=== PATIENT | female | born 1970 ===

== ENCOUNTER 2016-07-13 08:57 | Day surgery (SDC) | payer OTHER ==
[2016-07-13] MEDS ORDERED: Lactated Ringer's 500 ML IV ONE (10:05)
[2016-07-13] MEDS ORDERED: Propofol 10 mg/ml Inj (20 ML) ONE (10:12)
[2016-07-13 10:56] VITALS: TEMP 97; O2SAT 99
[2016-07-13 10:58] VITALS: BP 143/67; PULSE 66; RESP 12
== END 2016-07-13 15:20 | disposition home or self-care (01) ==
LOC: H.ENDO 08:57
PROVIDERS: ATTEND Internal Medicine Gastroenterology
DX: K30 Functional dyspepsia (principal); E11.9 Type 2 diabetes mellitus without complications; I10 Essential (primary) hypertension; K29.70 Gastritis, unspecified, without bleeding

== ENCOUNTER 2017-04-18 20:34 | Emergency (ER) | payer SELFPAY ==
[2017-04-18 20:53] VITALS: BP 110/69; PULSE 66; RESP 18; TEMP 97.8; O2SAT 98
--- NOTE | 2017-04-18 21:50 | ED PDOC ---
Upper Extremity Pain/Injury Time Seen by Provider: 04/18/17 21:16 Chief Complaint (Nursing): Finger,Hand,&Wrist Chief Complaint (Provider): Finger Injury History Per: Patient History/Exam Limitations: no limitations Onset/Duration Of Symptoms: Hrs Current Symptoms Are (Timing): Still Present Additional History Per: Family (daughter) Additional Complaint(s): Claudine is a 46 y/o right-handed female who presents to the ED with her and daughter for left 2nd digit pain and swelling with radiation to her upper arm. 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 She denies known injury or trauma. Patient took no medications TINT LAYER. Of note, patient is also complaining of pain to the inside of her left thigh. She states it started this morning and worsens with movement. She denies any trauma to the area or prior injury. Otherwise (-) leg swelling (-) SOB (-) dyspnea (-) cough (-) fever (-) chest pain (-) nausea, vomiting, diarrhea PMD: None Provided Past Medical History Reviewed: Historical Data, Nursing Documentation, Vital Signs Vital Signs: Last Vital Signs Temp 97.8 F 04/18/17 20:48 Pulse 66 04/18/17 20:48 Resp 18 04/18/17 20:48 BP 110/69 04/18/17 20:48 Pulse Ox 98 04/18/17 20:48 - Medical History PMH: Anemia, Diabetes, HTN, Hypercholesterolemia - Surgical History Surgical History: No Surg Hx - Family History Family History: States: Unknown Family Hx - Social History Current smoker - smoking cessation education provided: No Alcohol: None Drugs: Denies - Home Medications Home Medications: Ambulatory Orders Medication Instructions Recorded Ibuprofen [Motrin Tab] 600 mg PO Q6 #20 tab 04/18/17 - Allergies Allergies/Adverse Reactions: Allergies Allergy/AdvReac Type Severity Reaction Status Date / Time ibuprofen [From Motrin] Allergy ITCHING Verified 04/18/17 21:30 Review of Systems ROS Statement: Except As Marked, All Systems Reviewed And Found Negative Musculoskeletal: Positive for: Arm Pain (left), Hand Pain (left 2nd digit) Physical Exam - Reviewed Nursing Documentation Reviewed: Yes Vital Signs Reviewed: Yes - Physical Exam Appears: Positive for: Well, Non-toxic, No Acute Distress Head Exam: Positive for: ATRAUMATIC, NORMOCEPHALIC Skin: Positive for: Warm, Dry Eye Exam: Positive for: EOMI, PERRL Neck: Positive for: Painless ROM, Supple Cardiovascular/Chest: Positive for: Regular Rate, Rhythm. Negative for: Murmur Respiratory: Positive for: Normal Breath Sounds. Negative for: Decreased Breath Sounds, Accessory Muscle Use, Respiratory Distress Back: Negative for: Vertebral Tenderness Extremity: Positive for: Other (LUE: ecchymosis and swelling to palmar aspect of left second proximal digit, decreased flexion, otherwise rom of wrist, hand and other digits intact (-) distal NV deficit; LLE: left hip, knee, ankle, all with FROM, mild tenderness to medial distal left thigh, no effusions of any joints (-) ecchymosis (-) warmth (-) evidence of infection ). Negative for: Pedal Edema, Calf Tenderness Neurologic/Psych: Positive for: Alert, Oriented (x3) - ECG O2 Sat by Pulse Oximetry: 98 (RA) Pulse Ox Interpretation: Normal Medical Decision Making Medical Decision Making: Time: 21:45 Initial Impression: Left 2nd Digit Injury Initial Plan: --XR Left Hand 3 Views --Tylenol --Flexeril (Patient is not driving home) 2300 HAND XR: possible nondisplaced transverse fracture of the 2nd proximal phalanx Patient notified that a radiologist will review the ED reading if any change in treatment is needed we will contact you. Aluminum finger splint placed to 2nd digit by Cuauhtemoc GILBERT. NV intact after placement. On exam, patient remains AAOx3, in no acute distress. On exam, neck is supple, lungs CTA, cardiac RRR, neuro exam shows no focal findings. Diagnostic results d/w the patient in great detail. Dx of finger fracture, muscle strain of thigh d/w the patient. Based on history, exam and diagnostic results plan will be for discharge and outpatient follow up. Advised to follow up with primary care physician/ortho(C[facility]so) in 1-2 days without fail. Advised to take medication as prescribed. Return to the emergency room at any time for any new or worsening symptoms. Patient states she fully agrees with and understands discharge instructions. States that she agrees with the plan and disposition. Verbalized and repeated discharge instructions and plan. I have given the patient opportunity to ask any additional questions. Scribe Attestation: Documented by Dao Lal, acting as a scribe for Fatou Posadas PA-C Provider Scribe Attestation: All medical record entries made by the Scribe were at my direction and personally dictated by me. I have reviewed the chart and agree that the record accurately reflects my personal performance of the history, physical exam, medical decision making, and the department course for this patient. I have also personally directed, reviewed, and agree with the discharge instructions and disposition. Disposition - Clinical Impression Clinical Impression: Muscle strain of left lower extremity, Finger fracture, left - Patient ED Disposition Is Patient to be Admitted: No Counseled Patient/Family Regarding: Studies Performed, Diagnosis, Need For Followup, Rx Given - Disposition Referrals: Livan Houston III, MD [Staff Provider] - Disposition: Routine/Home Disposition Time: 23:06 Condition: STABLE Prescriptions: Ibuprofen [Motrin Tab] 600 mg PO Q6 #20 tab Instructions: Muscle Strain, Finger Fracture, Lower Extremity Muscle Strain Forms: [employer] (Citizen Of [place]), [facility] ED School/Work Excuse Print Language: BELARUSIAN - POA Present On Arrival: None
--- NOTE | 2017-04-19 09:59 | RAD ---
PROCEDURE: Left Hand Radiographs. HISTORY: 2nd digit injury COMPARISON: None. FINDINGS: BONES: No acute fracture. JOINTS: Unremarkable. SOFT TISSUES: Normal. OTHER FINDINGS: None. IMPRESSION: No demonstrated fracture or dislocation.
== END 2017-04-18 23:20 | disposition home or self-care (01) ==
LOC: H.ER 20:34
DX: S62.601A Fracture of unspecified phalanx of left index finger, initial encounter for closed fracture (principal); Y92.89 Other specified places as the place of occurrence of the external cause; E11.9 Type 2 diabetes mellitus without complications; Z88.6 Allergy status to analgesic agent; E78.00 Pure hypercholesterolemia, unspecified; I10 Essential (primary) hypertension

== ENCOUNTER 2018-04-21 09:35 | Emergency (ER) | payer SELFPAY ==
[2018-04-21 10:57] VITALS: RESP 18; TEMP 97.7
--- NOTE | 2018-04-21 12:03 | ED PDOC ---
Lower Extremity Pain/Injury Time Seen by Provider: 04/21/18 10:18 Chief Complaint (Nursing): Lower Extremity Problem/Injury History Per: Patient, Claims Agent Right Of Way (English #[id number]) Additional Complaint(s): Pt. states for the past week she's had atraumatic L knee pain. Pt. states pain is worse when she bends knee. Further reports for the past 2 months she's had L thigh pain radiating down to the L knee. Pt. was informed by her PMD that this is likely due to her DM. Thigh pain is alleviated with Tylenol but does not work for her knee pain. Denies trauma, weakness, dysuria, hematuria, incontinence, back pain, saddle paresthesias, rash, fever, chills. Past Medical History Reviewed: Historical Data, Nursing Documentation, Vital Signs Vital Signs: Last Vital Signs Temp 97.7 F 04/21/18 10:38 Pulse 73 04/21/18 10:38 Resp 18 04/21/18 10:38 BP 107/66 04/21/18 10:38 Pulse Ox 98 04/21/18 10:38 - Medical History PMH: Anemia, Diabetes, HTN, Hypercholesterolemia - Surgical History Surgical History: No Surg Hx - Family History Family History: States: No Known Family Hx - Home Medications Home Medications: Ambulatory Orders Medication Instructions Recorded Ibuprofen [Motrin Tab] 600 mg PO Q6 #20 tab 04/18/17 Tramadol HCl [Ultram] 50 mg PO BID PRN #10 tablet 04/21/18 - Allergies Allergies/Adverse Reactions: Allergies Allergy/AdvReac Type Severity Reaction Status Date / Time ibuprofen [From Motrin] Allergy ITCHING Verified 04/21/18 10:38 Review of Systems ROS Statement: Except As Marked, All Systems Reviewed And Found Negative Physical Exam - Physical Exam Appears: Positive for: Well, Non-toxic, No Acute Distress Skin: Positive for: Normal Color, Warm. Negative for: Rash Eye Exam: Positive for: Normal appearance Pulses-Dorsalis Pedis (L): 2+ Pulses-Dorsalis Pedis (R): 2+ Back: Positive for: Normal Inspection. Negative for: L CVA Tenderness, R CVA Tenderness Extremity: Positive for: Other (L knee without tenderness or swelling but with crepitus with active and passive ROM; no warmth, erythema, or break in skin integrity of L knee; no calf tenderness b/l) Neurological/Psych: Positive for: Awake, Alert, Symmetric/Intact Strength (lower extremity b/l), Oriented (x3), Gait (steady, unassisted) - ECG O2 Sat by Pulse Oximetry: 98 - Progress ED Course And Treament: Ultram 50mg PO, knee x-ray ordered. 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 Disposition - Clinical Impression Clinical Impression: Knee pain - Patient ED Disposition Is Patient to be Admitted: No - Disposition Referrals: [facility] [Outside] Disposition: Routine/Home Disposition Time: 13:08 Condition: IMPROVED Additional Instructions: FOLLOW UP WITH [facility] FOR FURTHER EVALUATION RETURN TO ED IMMEDIATELY IF SYMPTOMS WORSEN MEDINA HOANG, thank you for letting us take care of you today. Your provider was Meena George MD and you were treated for LT LEG PAIN. The emergen cy medical care you received today was directed at your acute symptoms. If you were prescribed any medication, please fill it and take as directed. It may take several days for your symptoms to resolve. Return to the Emergency Department if your symptoms worsen, do not improve, or if you have any other problems. Please contact your doctor or call one of the physicians/clinics you have been referred to that are listed on the Patient Visit Information form that is included in your discharge packet. Bring any paperwork you were given at discharge with you along with any medications you are taking to your follow up visit. Our treatment cannot replace ongoing medical care by a primary care provider outside of the emergency department. Thank you for allowing the [facility] team to be part of your care today. If you had an X-Ray or CT scan: A Radiologist will review the ED reading if any change in treatment is needed we will contact you. If you had a blood, urine, or wound culture: It will take several days for the results, if any change in treatment is needed we will contact you. If you had an STI test: It will take 48 hours for the results. Please call after 1 week if you have not heard back. Prescriptions: Tramadol HCl [Ultram] 50 mg PO BID PRN #10 tablet PRN Reason: Other Instructions: Knee Pain (DC) Forms: [employer] (Armenian) Print Language: URDU
[2018-04-21 13:49] VITALS: BP 110/68; PULSE 78; O2SAT 99
--- NOTE | 2018-04-21 15:10 | RAD ---
Date of service: 04/21/2018 PROCEDURE: Left Knee Radiographs. HISTORY: Pain. No history of recent/ related trauma provided COMPARISON: None. FINDINGS: BONES: Normal. No fracture. JOINTS: Normal. No osteoarthritis. JOINT EFFUSION: None. OTHER FINDINGS: None. IMPRESSION: Normal radiographs of the left knee.
== END 2018-04-21 13:25 | disposition home or self-care (01) ==
LOC: H.ER 09:35
DX: M25.562 Pain in left knee (principal); E11.9 Type 2 diabetes mellitus without complications; E78.00 Pure hypercholesterolemia, unspecified; I10 Essential (primary) hypertension; Z88.6 Allergy status to analgesic agent